=== PATIENT | male | born 1975 | race Caucasian/White ===

== ENCOUNTER 2018-12-18 16:04 | Emergency (ER) | payer BC ==
[~2018-12-18] VITALS: Ht 170.2 cm; Wt 134.1 kg
[~2018-12-18 16:04] MED LIST: ARIP5TAB4 PO; CIME800T PO; DICY10CA59 PO; DULO-31 PO; GLIM4TAB79 PO; LISI-600 PO; LORA-512 PO; MELA10TA PO; METF500T PO; OMEP20CA4 PO; SIMV10TA2 PO; TRAZ-218 PO
[2018-12-18 16:12] VITALS: BP 152/104
[2018-12-18] MEDS ORDERED: iohexol 300mg/ml 100ml inj. ONE (17:03)
--- NOTE | 2018-12-18 17:07 | NUR ---
LABS REDRAWN FROM RIGHT AC PIV
[2018-12-18 17:55] LABS: BASOPHILS # (AUTO) 0.1 X10'3 (0-0.2); BASOPHILS % (AUTO) 0.9 % (0-1); EOSINOPHILS # (AUTO) 0.2 X10'3 (0-0.9); EOSINOPHILS % (AUTO) 1.3 % (0-6); HEMATOCRIT 42.9 % (42.0-52.0); HEMOGLOBIN 14.1 g/dl (14.0-17.9); LYMPHOCYTES % (AUTO) 25.7 % (21-51); MEAN CORPUSCULAR HEMOGLOBIN 29.3 PG (27.0-31.0); MEAN CORPUSCULAR HGB CONC 32.8 g/dL (33.0-36.5); MEAN CORPUSCULAR VOLUME 89.3 FL (78-98); MEAN PLATELET VOLUME 8.6 FL (7.4-10.4); MONOCYTES # (AUTO) 0.8 X10'3 (0-0.9); MONOCYTES % (AUTO) 6.8 % (2-12); NEUTROPHILS # (AUTO) 7.6 X10'3 (1.8-7.7); NEUTROPHILS % (AUTO) 65.3 % (42-75); PLATELET COUNT 262 X10'3 (140-440); RED CELL DISTRIBUTION WIDTH 14.3 % (11.5-14.5); WHITE BLOOD COUNT 11.6 X10'3 (4.5-11.0)
[2018-12-18 18:07] LABS: ALANINE AMINOTRANSFERASE 45 U/L (12-78); ALBUMIN 3.9 G/DL (3.4-5.0); ALBUMIN/GLOBULIN RATIO 1.1 (1.1-1.5); ALKALINE PHOSPHATASE 46 IU/L (46-116); ANION GAP 10 (8-16); ASPARTATE AMINO TRANSFERASE 24 U/L (10-37); BILIRUBIN,TOTAL 0.3 MG/DL (0.1-1.0); BLOOD UREA NITROGEN 24 MG/DL (7-18); BUN/CREATININE RATIO 18.9 (5.4-32.0); CALCIUM 10.1 MG/DL (8.5-10.1); CHLORIDE 99 MMOL/L (99-107); CREATININE 1.27 MG/DL (0.60-1.10); GLUCOSE 139 MG/DL (70-104); POTASSIUM 4.2 MMOL/L (3.5-5.1); SODIUM 137 MMOL/L (135-145); TOTAL CARBON DIOXIDE 27.6 MMOL/L (24-32); TOTAL PROTEIN 7.5 G/DL (6.4-8.2); eGFR 62 ML/MIN
[2018-12-18] MEDS ORDERED: cefazolin/dext.iso 2gm/100ml 100 ML IV STA (18:08)
[2018-12-18] MEDS ORDERED: CLIN300C85 PO (18:11)
[2018-12-18] MEDS ORDERED: HYDR-4353 PO (18:11)
[2018-12-18] MEDS ORDERED: CEPH500C5 PO (18:11)
[2018-12-18] MEDS ORDERED: HYDROcodone/acetaminophen 10/325mg tab PO ONE (18:20)
--- NOTE | 2018-12-18 18:31 | NUR ---
Up to [facility]
[2018-12-18] MEDS ORDERED: normal saline 1000ml 1,000 ML IV ONE (18:35)
== END 2018-12-18 19:36 | disposition home or self-care (01) ==
LOC: ER 16:04
DX: K11.20 Sialoadenitis, unspecified (principal); E78.00 Pure hypercholesterolemia, unspecified; I10 Essential (primary) hypertension; E11.9 Type 2 diabetes mellitus without complications; Z88.0 Allergy status to penicillin; Z79.84 Long term (current) use of oral hypoglycemic drugs; Z79.899 Other long term (current) drug therapy
CPT/HCPCS: 36415; 70487; 80053; 85025; 96365; 99284; J0690; J7030; Q9967

== ENCOUNTER 2019-03-17 02:13 | Outpatient (CLI) | payer BC ==
[~2019-03-17 02:13] MED LIST changes: +CEPH500C5 PO; +CLIN-96 PO; -TRAZ-218 PO; +TRAZ-251 PO
== END 2019-03-17 23:59 | disposition home or self-care (01) ==
LOC: DIABETIC 02:13
PROVIDERS: ATTEND Surgery
DX: Z01.818 Encounter for other preprocedural examination (principal); E11.9 Type 2 diabetes mellitus without complications; I10 Essential (primary) hypertension; G47.30 Sleep apnea, unspecified; E66.01 Morbid (severe) obesity due to excess calories
CPT/HCPCS: 97802

== ENCOUNTER 2019-04-07 04:44 | Outpatient (CLI) | payer BC | END 2019-04-07 23:59 | disposition home or self-care (01) | LOC: DIABETIC 04:44 | PROVIDERS: ATTEND Surgery | DX: Z01.818 Encounter for other preprocedural examination (principal); E66.01 Morbid (severe) obesity due to excess calories; E11.9 Type 2 diabetes mellitus without complications; I10 Essential (primary) hypertension; G47.30 Sleep apnea, unspecified; Z79.4 Long term (current) use of insulin | CPT/HCPCS: 97802 ==

== ENCOUNTER 2019-05-12 04:39 | Outpatient (CLI) | payer BC | END 2019-05-12 23:59 | disposition home or self-care (01) | LOC: DIABETIC 04:39 | PROVIDERS: ATTEND Surgery | DX: Z01.818 Encounter for other preprocedural examination (principal); E11.9 Type 2 diabetes mellitus without complications; I10 Essential (primary) hypertension; G47.30 Sleep apnea, unspecified | CPT/HCPCS: 97803 ==

== ENCOUNTER 2019-06-04 02:11 | Outpatient (CLI) | payer BC ==
[~2019-06-04 02:11] MED LIST changes: +GLIM4TAB4 PO; -GLIM4TAB79 PO
== END 2019-06-04 23:59 | disposition home or self-care (01) ==
LOC: DIABETIC 02:11
PROVIDERS: ATTEND Surgery
DX: Z01.818 Encounter for other preprocedural examination (principal); E11.9 Type 2 diabetes mellitus without complications; I10 Essential (primary) hypertension; Z79.4 Long term (current) use of insulin
CPT/HCPCS: 97803

== ENCOUNTER 2019-07-07 01:56 | Outpatient (CLI) | payer BC | END 2019-07-07 23:59 | disposition home or self-care (01) | LOC: DIABETIC 01:56 | PROVIDERS: ATTEND Surgery | DX: Z01.818 Encounter for other preprocedural examination (principal); E66.01 Morbid (severe) obesity due to excess calories; E11.9 Type 2 diabetes mellitus without complications | CPT/HCPCS: 97803 ==

== ENCOUNTER 2019-07-28 05:11 | Outpatient (CLI) | payer BC | END 2019-07-28 23:59 | disposition home or self-care (01) | LOC: DIABETIC 05:11 | PROVIDERS: ATTEND Surgery | DX: E66.01 Morbid (severe) obesity due to excess calories (principal); E11.9 Type 2 diabetes mellitus without complications | CPT/HCPCS: 97803 ==

== ENCOUNTER 2020-06-01 16:00 | Outpatient (CLI) | payer BC ==
[~2020-06-01 16:00] MED LIST changes: +ARIP5TAB14 PO; -ARIP5TAB4 PO; -CEPH500C5 PO; -CLIN-96 PO; +CLIN-97 PO; -GLIM4TAB4 PO; +GLIM4TAB7 PO
[2020-06-01 17:02] LABS: HEMOGLOBIN A1C 8.4 % (4.5-6.2)
[2020-06-01 17:05] LABS: CLARITY,URINE CLEAR (Clear); COLOR,URINE YELLOW (Yellow); GLUCOSE, URINE 100 mg/dl (Neg); KETONES,URINE NEGATIVE (Neg); LEUKOCYTE ESTERASE ,URINE NEGATIVE (Neg); NITRITES, URINE NEGATIVE (Neg); OCCULT BLOOD,URINE NEGATIVE (Neg); PROTEIN,URINE NEGATIVE (Neg); UROBILINOGEN,URINE 0.2 E.U/dL (0.2-1.0)
[2020-06-01 17:06] LABS: UA COLLECTION TYPE CLN CATCH MIDSTREAM
[2020-06-01 18:03] LABS: ALBUMIN 4.1 G/DL (3.4-5.0); ANION GAP 7 (8-16); BLOOD UREA NITROGEN 19 MG/DL (7-18); BUN/CREATININE RATIO 22.1 (5.4-32.0); CALCIUM 9.3 MG/DL (8.5-10.1); CHLORIDE 101 MMOL/L (99-107); CREATININE 0.86 MG/DL (0.60-1.10); GLUCOSE 162 MG/DL (70-104); POTASSIUM 4.1 MMOL/L (3.5-5.1); SODIUM 137 MMOL/L (135-145); TOTAL CARBON DIOXIDE 28.9 MMOL/L (24-32); eGFR > 90 ML/MIN
[2020-06-01 18:25] LABS: % IRON SATURATION 13 % (11-46); IRON 36 UG/DL (53-167); TOTAL IRON BINDING CAPACITY 274 UG/DL (259-388)
[2020-06-01 18:32] LABS: ALANINE AMINOTRANSFERASE 39 U/L (12-78); ALBUMIN/GLOBULIN RATIO 1.2 (1.1-1.5); ALKALINE PHOSPHATASE 55 IU/L (46-116); ASPARTATE AMINO TRANSFERASE 21 U/L (10-37); BILIRUBIN,TOTAL 0.4 MG/DL (0.1-1.0); CHOL/HDL RATIO 4.8 (0.00-4.99); CHOLESTEROL 210 MG/DL (0-200); FERRITIN 310 NG/ML (26-388); HDL CHOLESTEROL 44 MG/DL (35-60); LDL CHOLESTEROL 135 MG/DL (50-100); TOTAL PROTEIN 7.5 G/DL (6.4-8.2); TRIGLYCERIDES 125 MG/DL (20-135)
== END 2020-06-01 23:59 | disposition home or self-care (01) ==
LOC: LAB 16:00
PROVIDERS: ATTEND Family Medicine
DX: E11.8 Type 2 diabetes mellitus with unspecified complications (principal); E78.5 Hyperlipidemia, unspecified; I10 Essential (primary) hypertension; Z79.899 Other long term (current) drug therapy; Z98.84 Bariatric surgery status
CPT/HCPCS: 36415; 80053; 80061; 81003; 82043; 82306; 82570; 82607; 82728; 83036; 83540; 83550; 84402; 84403

== ENCOUNTER → 2020-07-15 | Outpatient (CLI) | payer BC ==
[2020-07-17 08:59] LABS: FSH, SERUM 25.4 mIU/mL (1.5-12.4); LUTEINIZING HORMONE 13.7 mIU/mL (1.7-8.6)
== END | disposition home or self-care (01) ==
LOC: LAB 13:31
PROVIDERS: ATTEND Family Medicine
DX: E11.8 Type 2 diabetes mellitus with unspecified complications (principal); E29.1 Testicular hypofunction; Z79.899 Other long term (current) drug therapy
CPT/HCPCS: 36415; 82043; 83001; 83002; 84402; 84403

== ENCOUNTER → 2020-07-22 | Outpatient (CLI) | payer BC ==
[2020-07-23 11:41] LABS: FSH, SERUM 26.7 mIU/mL (1.5-12.4); LUTEINIZING HORMONE 13.4 mIU/mL (1.7-8.6)
== END | disposition home or self-care (01) ==
LOC: LAB 08:17
PROVIDERS: ATTEND Family Medicine
DX: E29.1 Testicular hypofunction (principal); E11.8 Type 2 diabetes mellitus with unspecified complications
CPT/HCPCS: 36415; 82043; 83001; 83002; 84402; 84403